=== PATIENT | female | born 1970 | race Caucasian/White ===

== ENCOUNTER → 2016-06-13 | Emergency (ER) | payer BC ==
--- NOTE | 2016-06-13 08:50 | ED ---
Lower Extremity - HPI Summary HPI Summary: Patient has a history of bilateral DVT's and presents today with right lower extremity tenderness that began yesterday evening without known cause. This morning a "red streak" appeared on the medial mid calf as well. She has asthma and is not sure if she is SOB or if her asthma is acting up. She denies acute SOB like she had in the past with her previous DVT's. She denies redness or swelling in the RLE. - History of Current Complaint Chief Complaint: EDExtremityLower Stated Complaint: POSS BLOOD CLOT /RT LEG Time Seen by Provider: 06/13/16 08:09 Hx Obtained From: Patient, Family/Chest Painting Leader Mechanism Of Injury: Unknown Onset of Pain: Hours, Prior to Arrival Onset/Duration: Still Present Severity Initially: Mild Severity Currently: Mild Pain Intensity: 2 Timing: Constant Location: Is Discrete @ - RLE Character Of Pain: Aching Associated Signs And Symptoms: Positive: Negative Aggravating Factor(s): Other - palpation Alleviating Factor(s): Rest Able to Bear Weight: Yes - Allergies/Home Medications Allergies/Adverse Reactions: Allergies Allergy/AdvReac Type Severity Reaction Status Date / Time Adhesive Tape Allergy Rash Verified 06/13/16 08:04 PMH/Surg Hx/FS Hx/Imm Hx Endocrine/Hematology History: Denies: Hx Diabetes, Hx Thyroid Disease Cardiovascular History: Denies: Hx Hypercholesterolemia, Hx Hypertension, Hx Pacemaker/ICD, Hx Peripheral Vascular Disease Respiratory History: Reports: Hx Asthma - EXERCISE INDUCED, Hx Pulmonary Embolism - SADDLE BOTH LUNGS 2005, Other Respiratory Problems/Disorders - PE LAST YEAR Musculoskeletal History: Reports: Other Musculoskeletal History - LEFT LEG HAMSTRING TEAR with surgical repair Denies: Hx Arthritis, Hx Osteoporosis Sensory History: Denies: Hx Cataracts, Hx Contacts or Glasses, Hx Glaucoma, Hx Hearing Aid Opthamlomology History: Denies: Hx Cataracts, Hx Contacts or Glasses, Hx Glaucoma Neurological History: Denies: Hx Headaches, Hx Seizures, Hx Transient Ischemic Attacks (TIA) Psychiatric History: Denies: Hx Anxiety, Hx Depression, Hx Panic Disorder - Cancer History Hx Chemotherapy: No Hx Radiation Therapy: No - Surgical History Surgery Procedure, Year, and Place: 2008 ENDOMETRIAL ABLATION, HYSTERECTOMY 2015 Hx Anesthesia Reactions: No Infectious Disease History: No Infectious Disease History: Denies: Traveled Outside the [place] in Last 30 Days - Family History Known Family History: Positive: Cardiac Disease - Social History Occupation: Employed Full-time Lives: With Family Alcohol Use: Weekly Alcohol Amount: 1-2 GLASSES/WK Substance Use Type: Reports: None Smoking Status (MU): Never Smoked Tobacco Have You Smoked in the Last Year: No Review of Systems Negative: Fever, Chills Negative: Photophobia, Blurred Vision Negative: Chest Pain Positive: Shortness Of Breath - mild. Negative: Cough Positive: Myalgia - right calf. Negative: Decreased ROM, Edema Negative: Bruising Negative: Weakness, Paresthesia, Numbness All Other Systems Reviewed And Are Negative: Yes Physical Exam Triage Information Reviewed: Yes Vital Signs On Initial Exam: Initial Vitals Temp Pulse Resp BP Pulse Ox 98.4 F 76 20 144/77 100 06/13/16 08:04 06/13/16 08:04 06/13/16 08:04 06/13/16 08:04 06/13/16 08:04 Vital Signs Reviewed: Yes Appearance: Positive: Well-Appearing, No Pain Distress, Obese Skin: Positive: Warm, Skin Color Reflects Adequate Perfusion, Dry, Soft, Erythema @ - blanching 7 cm long, 3 mm wide erythematous line on medial mid calf without abrasion or bruising Head/Face: Positive: Normal Head/Face Inspection Eyes: Positive: EOMI, [place], Conjunctiva Clear ENT: Positive: Hearing grossly normal Respiratory/Lung Sounds: Positive: Clear to Auscultation, Breath Sounds Present Cardiovascular: Positive: RRR Musculoskeletal: Positive: Strength/ROM Intact, Pain @ - mild TTP right calf. Negative: Edema Left, Edema Right Neurological: Positive: Sensory/Motor Intact, Alert, Oriented to Person Place, Time, NV Bundle Intact Distally Psychiatric: Positive: Affect/Mood Appropriate AVPU Assessment: Alert Diagnostics - Vital Signs Vital Signs Temp Pulse Resp BP Pulse Ox 06/13/16 08:29 79 16 117/74 96 06/13/16 08:27 81 97 06/13/16 08:04 98.4 F 76 20 144/77 100 - Laboratory Lab Results: Negative D-dimer Lab Statement: Any lab studies that have been ordered have been reviewed, and results considered in the medical decision making process. - Ultrasound No standard instances Ultrasound Interpretation: No Acute Changes Ultrasound Interpretation Completed By: Radiologist - EKG No standard instances Cardiac Rate: NL EKG Rhythm: Sinus Rhythm ST Segment: Normal Ectopy: None Lower Extremity Course/Dx - Diagnoses Differential Diagnosis/HQI/PQRI: Positive: Arthritis, Bursitis, Cellulitis, Contusion, Fracture (Closed), Gout, Phlebitis, Sprain, Strain Provider Diagnoses: Pain of right calf Discharge - Discharge Plan Condition: Stable Disposition: HOME Patient Education Materials: Leg Edema (ED) Referrals: Natalie Castillo MD [Primary Care Provider] - Additional Instructions: Please follow-up with your primary care provider in 2-3 days if your symptoms persist. Return to the emergency department if your symptoms worsen.
--- NOTE | 2016-06-13 09:28 | RAD ---
INDICATION: Right lower extremity pain. COMPARISON: There are no prior studies available for comparison. TECHNIQUE: Multiple real-time, color flow and Doppler tracings of the right lower extremity were obtained. FINDINGS: The common femoral, femoral, profunda femoral and popliteal veins all demonstrate normal compressibility, augmentation with compression and phasic response with respiration. The posterior tibial and peroneal veins demonstrate normal compressibility and augmentation with compression. IMPRESSION: NO EVIDENCE FOR DEEP VENOUS THROMBOSIS.
[2016-06-13 09:38] VITALS: BP 114/71
[2016-06-13 09:38] LABS: Hematocrit 39 % (35-47); Hemoglobin 13.1 g/dl (12.0-16.0); Mean Corpuscular HGB Conc 34 g/dl (31-36); Mean Corpuscular Hemoglobin 31 pg (27-31); Mean Corpuscular Volume 92 fL (80-97); Mean Platelet Volume 8 um3 (7.4-10.4); Red Blood Count 4.22 10^6/ul (4.0-5.4); Red Cell Distribution Width 14 % (10.5-15); White Blood Count 8.8 10^3/ul (3.5-10.8)
[2016-06-13 09:58] LABS: BUN/Creatinine Ratio 12.6 (8-20); Calcium 9.5 mg/dL (8.6-10.3); EGFR African American 81.4 (>60); EGFR Non-African American 63.3 (>60); Globulin 2.8 g/dL (2-4); Potassium 4.2 mmol/L (3.5-5.0); Total Bilirubin 0.5 mg/dL (0.2-1.0); Total Protein 6.8 g/dL (6.4-8.9)
== END | disposition home or self-care (01) ==
LOC: ED 07:59
DX: M79.661 Pain in right lower leg (principal); R06.02 Shortness of breath; Z86.718 Personal history of other venous thrombosis and embolism
CPT/HCPCS: 36415; 80053; 85025; 85379; 93005; 99283

== ENCOUNTER 2018-07-06 13:32 | Emergency (ER) | payer BC ==
[2018-07-06 14:03] VITALS: BP 115/75
--- NOTE | 2018-07-06 14:26 | UC ---
FLU HPI - HPI Summary HPI Summary: 48 y/o female presents to the urgent care c/o dry cough, nasal congestion w/ mild PND, MALDONADO and chills since 07/03/2018. Pt states PMHX of asthma and she feels mild wheezing for the past 2 days and has been using her inhaler and OTC medication to alleviate symptoms. Pt denies fever, SOB, difficulty breathing, chest pain, dizziness, abdominal pain, N/V/D. has been w/ a common cold for the past 10 days. - History of Current Complaint Chief Complaint: UCGeneralIllness Stated Complaint: POSS FLU Time Seen by Provider: 07/06/18 14:05 Hx Obtained From: Patient Onset/Duration: Gradual Onset, Lasting Days - 3 days, Still Present Pain Intensity: 0 - Allergy/Home Medications Allergies/Adverse Reactions: Allergies Allergy/AdvReac Type Severity Reaction Status Date / Time Adhesive Tape Allergy Rash Verified 07/06/18 13:56 Home Medications: Home Medications D-Methorphan/PE/Acetaminophen [Gnp Day Time Cold/Flu Rel] 1 liq PO ONCE [History Confirmed 07/06/18] PMH/Surg Hx/FS Hx/Imm Hx - Surgical History Surgical History: Yes Surgery Procedure, Year, and Place: 2007 ENDOMETRIAL ABLATION, HYSTERECTOMY. L hamstring [id number]. 2015 - Family History Known Family History: Positive: Cardiac Disease - Social History Alcohol Use: Occasionally Alcohol Amount: 1-2 GLASSES/WK Substance Use Type: None Smoking Status (MU): Never Smoked Tobacco Have You Smoked in the Last Year: No - Immunization History Most Recent Influenza Vaccination: FALL 2013 Most Recent Tetanus Shot: UNKNOWN Most Recent Pneumonia Vaccination: 2012 Physical Exam - Summary Physical Exam Summary: Vital Signs Reviewed: Yes General: well developed, well nourished female sitting in the examining table w/ o any apparent distress Eyes: Positive: Conjunctiva Clear - PERRLA, EOMI, fundi grossly normal ENT: Positive: Normal ENT inspection, Hearing grossly normal, Pharynx normal, Nasal congestion - edematous and erythematous nasal mucosa, Nasal drainage - yellowish drainage, TMs normal. Negative: Tonsillar swelling, Tonsillar exudate Neck: Positive: Supple, Nontender, No Lymphadenopathy Respiratory: no orthopnea or dyspnea. Able to speak in full sentences, no retractions or accessory muscle use, no tripod position, stridor, or head bobbing. Positive breath sounds bilaterally. MIld posterio upper lungs w/ mild scattered wheezing , no rhonchi , no crackles or rales. Cardiovascular: Positive: RRR, No Murmur, Pulses Normal, Brisk Capillary Refill Abdomen Description: Positive: Nontender, No Organomegaly, Soft. Negative: CVA Tenderness (R), CVA Tenderness (L) Bowel Sounds: Positive: Present Musculoskeletal Exam: Normal Musculoskeletal: Positive: Strength Intact, ROM Intact, No Edema Neurological Exam: Normal Psychological Exam: Normal Skin Exam: Normal Triage Information Reviewed: Yes Vital Signs: Initial Vital Signs Temp 98.4 F 07/06/18 13:58 Pulse 70 07/06/18 13:58 Resp 16 07/06/18 13:58 BP 115/75 07/06/18 13:58 Pulse Ox 97 07/06/18 13:58 Flu Course/Dx - Course Course Of Treatment: 48 y/o female presents to the urgent care c/o dry cough, nasal congestion w/ mild PND, MALDONADO and chills since 07/03/2018. Pt states PMHX of asthma and she feels mild wheezing for the past 2 days and has been using her inhaler and OTC medication to alleviate symptoms. Pt denies fever, SOB, difficulty breathing, chest pain, dizziness, abdominal pain, N/V/D. has been w/ a common cold for the past 10 days.Hx obtained. - Differential Dx/Diagnosis Differential Diagnosis/HQI/PQRI: Bronchitis, Influenza, Pneumonia, Upper Respiratory Infection Provider Diagnosis: Upper respiratory infection, Wheezing Discharge - Sign-Out/Discharge Documenting (check all that apply): Patient Departure - D/C home All imaging exams completed and their final reports reviewed: No Studies - Discharge Plan Condition: Stable Disposition: HOME Prescriptions: Albuterol 2.5MG/3ML (0.083%)* [Ventolin 2.5 MG/3 ML NEB.JESSICA*] 2.5 mg INH Q6H #1 box Albuterol HFA INHALER* [Ventolin HFA Inhaler*] 2 puff INH Q6H PRN #1 mdi PRN Reason: Sob/Wheezing Patient Education Materials: Asthma (ED), Upper Respiratory Infection (ED) Forms: *Work Release Referrals: Natalie Castillo MD [Primary Care Provider] - 3 Days Additional Instructions: 1- Please continue using the albuterol inhaler of Albuterol treatment to alleviate mild wheezing and bronchospasm as directed 2-Please take ibuprofen PO q6-8hrs prn as instructed after meals to alleviate pain and swelling. Increase fluid intake, eat well, rest and avoid strenuous exercise 3-If symptoms do not improve or worsen please return to the urgent care or f/u with your PCP in 3 days for further evaluation and treatment. 4- Influenza A&B was negative - Billing Disposition and Condition Condition: STABLE Disposition: Home
[2018-07-06] MEDS ORDERED: Albuterol 2.5 MG/3 ML NEB.SOL* (0.083%) INH ONE (14:32)
[2018-07-06 15:17] LABS: Influenza A Molecular NEGATIVE (Negative); Influenza B Molecular NEGATIVE (Negative)
== END 2018-07-06 15:20 | disposition home or self-care (01) ==
LOC: UCEAST 13:32
DX: J06.9 Acute upper respiratory infection, unspecified (principal); R06.2 Wheezing; Z91.048 Other nonmedicinal substance allergy status
CPT/HCPCS: 99212; G0463

== ENCOUNTER 2018-12-08 21:20 | Emergency (ER) | payer BC ==
[2018-12-09] MEDS ORDERED: Ketorolac INJ* 30 MG/ML 1 ML VIAL IV PUSH ONE (00:26)
[2018-12-09] MEDS ORDERED: Lorazepam PYXIS KEY PRN (00:27)
[2018-12-09] MEDS ORDERED: LORazepam INJ* 2 MG/ML 1 ML VIAL IV PUSH ONE (00:27)
--- NOTE | 2018-12-09 00:39 | ED ---
Palpitations / Dysrhythmia - HPI Summary HPI Summary: This pt is a 48 Y/O F presenting to [facility] with a CC of dysrhythmia that is described as fluctuating from 130 BPM to 40 BPM. The pt stated that she was at rest when the dysrhythmia started. She stated that became weak and shaky during the episodes. She also stated that her hands became sweaty. She stated that the heart rates werent irregular. She denies any CP, SOB, N/V, headaches, and fevers. She stated no aggravating or alleviating symptoms. She does not have a pertinent PMHx to report. - History of Current Complaint Chief Complaint: EDDysrhythmPalp Time Seen by Provider: 12/09/18 00:22 Hx Obtained From: Patient Onset/Duration: Sudden Onset, Resolved Timing: Intermittent Episodes Lasting: Severity Initially: Moderate Severity Currently: None Character: Fast Aggravating: Nothing Alleviating: Nothing Associated Signs & Symptoms: Negative - CP, SOB, N/V, headaches, and fevers., Diaphoresis - Allergy/Home Medications Allergies/Adverse Reactions: Allergies Allergy/AdvReac Type Severity Reaction Status Date / Time Adhesive Tape Allergy Rash Verified 12/08/18 21:23 PMH/Surg Hx/FS Hx/Imm Hx Previously Healthy: Yes Endocrine/Hematology History: Denies: Hx Diabetes, Hx Thyroid Disease Cardiovascular History: Denies: Hx Hypercholesterolemia, Hx Hypertension, Hx Pacemaker/ICD, Hx Peripheral Vascular Disease Respiratory History: Reports: Hx Asthma - EXERCISE INDUCED, Hx Pulmonary Embolism - SADDLE BOTH LUNGS 2005, Other Respiratory Problems/Disorders - PE LAST YEAR Musculoskeletal History: Reports: Other Musculoskeletal History - LEFT LEG HAMSTRING TEAR with surgical repair Denies: Hx Arthritis, Hx Osteoporosis Sensory History: Denies: Hx Cataracts, Hx Contacts or Glasses, Hx Glaucoma, Hx Hearing Aid Opthamlomology History: Denies: Hx Cataracts, Hx Contacts or Glasses, Hx Glaucoma Neurological History: Denies: Hx Headaches, Hx Seizures, Hx Transient Ischemic Attacks (TIA) Psychiatric History: Denies: Hx Anxiety, Hx Depression, Hx Panic Disorder - Cancer History Hx Chemotherapy: No Hx Radiation Therapy: No - Surgical History Surgery Procedure, Year, and Place: 2007 ENDOMETRIAL ABLATION, HYSTERECTOMY. L hamstring [id number]. 2015 Hx Anesthesia Reactions: No - Immunization History Immunizations Up to Date: Yes Infectious Disease History: No Infectious Disease History: Denies: Traveled Outside the [place] in Last 30 Days - Family History Known Family History: Positive: Cardiac Disease - Social History Alcohol Use: Occasionally Alcohol Amount: 1-2 GLASSES/WK Substance Use Type: Reports: None Smoking Status (MU): Former Smoker Have You Smoked in the Last Year: No Review of Systems Negative: Fever Positive: Palpitations - fast. Negative: Chest Pain Negative: Shortness Of Breath Negative: Vomiting, Nausea Negative: Headache All Other Systems Reviewed And Are Negative: Yes Physical Exam - Summary Physical Exam Summary: VITAL SIGNS: Reviewed. GENERAL: Patient is a well-developed and nourished female who is lying comfortable in the stretcher. Patient is not in any acute respiratory distress. HEAD AND FACE: No signs of trauma. No ecchymosis, hematomas or skull depressions. No sinus tenderness. EYES: PERRLA, EOMI x 2, No injected conjunctiva, no nystagmus. EARS: Hearing grossly intact. Ear canals and tympanic membranes are within normal limits. MOUTH: Oropharynx within normal limits. NECK: Supple, trachea is midline, no adenopathy, no JVD, no carotid bruit, no c- spine tenderness, neck with full ROM CHEST: Symmetric, no tenderness at palpation LUNGS: Clear to auscultation bilaterally. No wheezing or crackles. CVS: Regular rate and rhythm, S1 and S2 present, no murmurs or gallops appreciated. ABDOMEN: Soft, non-tender. No signs of distention. No rebound no guarding, and no masses palpated. Bowel sounds are normal. EXTREMITIES: FROM in all major joints, no edema, no cyanosis or clubbing. NEURO: Alert and oriented x 3. No acute neurological deficits. Speech is normal and follows commands. SKIN: Dry and warm Triage Information Reviewed: Yes Vital Signs On Initial Exam: Initial Vitals Temp Pulse Resp BP Pulse Ox 99.1 F 81 16 145/86 98 12/08/18 21:21 12/08/18 21:21 12/08/18 21:21 12/08/18 21:21 12/08/18 21:21 Vital Signs Reviewed: Yes Diagnostics - Vital Signs Vital Signs Temp Pulse Resp BP Pulse Ox 12/09/18 00:20 65 13 110/68 98 12/09/18 00:00 65 17 97 12/08/18 23:55 65 17 97 12/08/18 23:50 68 15 118/75 96 12/08/18 23:21 78 105/77 97 12/08/18 23:19 73 99 12/08/18 21:21 99.1 F 81 16 145/86 98 - Laboratory Result Diagrams: 12/09/18 01:07 12/09/18 01:07 Lab Statement: Any lab studies that have been ordered have been reviewed, and results considered in the medical decision making process. - EKG 2123 Cardiac Rate: NL EKG Rhythm: Sinus Rhythm - [address] Segment: Normal Ectopy: None Summary of EKG Findings: NSR of 81 BPM with Normal axis. Normal interval. No ischemic changes. Interpreted by at 212512/09/18. Course/Dx - Course Course Of Treatment: This pt is a 48 Y/O F presenting to [facility] with a CC of dysrhythmia that is described as fluctuating from 130 BPM to 40 BPM. The pt stated that she was at rest when the dysrhythmia started. She stated that became weak and shaky during the episodes. She also stated that her hands became sweaty. Her EKG showed the following: NSR of 81 BPM with Normal axis. Normal interval. No ischemic changes. She has no abnormal lab values. She will be discharged home with a Dx of palpiatations and instructed to follow up with Cardiology in the morning. - Diagnoses Provider Diagnoses: Palpitations Discharge - Sign-Out/Discharge Documenting (check all that apply): Patient Departure - discharge Patient Received Moderate/Deep Sedation with Procedure: No - Discharge Plan Condition: Stable Disposition: HOME Patient Education Materials: Heart Palpitations (ED) Referrals: Natalie Castillo MD [Primary Care Provider] - 2 Days Jigar Prince MD [Medical Doctor] - 1 Day Additional Instructions: PLEASE RETURN TO THE ED IMMEDIATELY FOR WORSENING OR CONCERNING SYMPTOMS AND FOLLOW UP WITH YOUR PRIMARY CARE PHYSICIAN IN 1-3 DAYS. Please follow up with Dr. Prince, cardiology, in 1-3 days. - Attestation Statements Document Initiated by Scribe: Yes Documenting Scribe: Chivo Matute Provider For Whom Scribe is Documenting (Include Credential): Yves Burnette MD Scribe Attestation: Chivo Day, scribed for Yves Burnette MD on 08/13/19 at 0238. Status of Scribe Document: Ready
[2018-12-09 01:13] LABS: ABS Basophils 0.1 10^3/ul (0-0.2); ABS Eosinophils 0.3 10^3/ul (0-0.6); ABS Lymphocytes 3.1 10^3/ul (1.0-4.8); ABS Monocytes 0.8 10^3/ul (0-0.8); ABS Neutrophils 4.9 10^3/ul (1.5-7.7); Eosinophil % 2.9 %; Hematocrit 36 % (35-47); Hemoglobin 12.4 g/dL (12.0-16.0); Mean Corpuscular HGB Conc 35 g/dL (31-36); Mean Corpuscular Hemoglobin 32 pg (27-31); Mean Corpuscular Volume 91 fL (80-97); Mean Platelet Volume 8.3 fL (7.4-10.4); Platelet Count 222 10^3/uL (150-450); Red Blood Count 3.92 10^6 /uL (3.70-4.87); Red Cell Distribution Width 14 % (10-15); White Blood Count 9.2 10^3/uL (3.5-10.8)
[2018-12-09 01:22] LABS: INR 0.96 (0.82-1.09)
[2018-12-09 01:37] LABS: Albumin/Globulin Ratio 1.7 (1-3); BUN/Creatinine Ratio 18.5 (8-20); Calcium 8.8 mg/dL (8.6-10.3); EGFR African American 78.8 (>60); EGFR Non-African American 65.2 (>60); Globulin 2.3 g/dL (2-4); Magnesium 1.9 mg/dL (1.9-2.7); Potassium 3.9 mmol/L (3.5-5.0); Total Bilirubin 0.3 mg/dL (0.2-1.0); Total Protein 6.3 g/dL (6.4-8.9)
[2018-12-09 02:02] LABS: TSH (Thyroid Stimulating Horm) 3.65 mcIU/mL (0.34-5.60)
[2018-12-09 02:47] VITALS: BP 109/66
== END 2018-12-09 02:46 | disposition home or self-care (01) ==
LOC: ED 21:20
DX: R00.2 Palpitations (principal); Z91.048 Other nonmedicinal substance allergy status; Z82.49 Family history of ischemic heart disease and other diseases of the circulatory system; Z87.891 Personal history of nicotine dependence
CPT/HCPCS: 36415; 80053; 83735; 84443; 84484; 85025; 85610; 85730; 93005; 99282